=== PATIENT | female | born 1985 | race Caucasian/White ===

== ENCOUNTER → 2019-08-15 | Outpatient (CLI) | payer BC ==
--- NOTE | 2019-08-16 13:30 | RAD ---
EXAM DESCRIPTION: Knee,Left Complete CLINICAL HISTORY: 34 years, Female, KNEE PN COMPARISON: None TECHNIQUE: Four views of the left knee FINDINGS: No acute displaced fracture or dislocation is seen. The alignment of the knee is intact. No significant degenerative changes. No knee joint effusion. Mild prepatellar soft tissue calcification. No focal soft tissue swelling. IMPRESSION: 1. No acute osseous abnormality. Electronically signed by: Conor Moss DO 08/16/2019 1:28 PM CDT
== END ==
LOC: RAD 16:16
PROVIDERS: ATTEND Orthopaedic Surgery
DX: M25.562 Pain in left knee (principal)

== ENCOUNTER → 2019-08-22 | Outpatient (CLI) | payer BC ==
--- NOTE | 2019-08-22 15:11 | MRI ---
Study: MRI of the Left Knee. Indication: PAIN IN LEFT KNEE Technique: Multiplanar, multi sequence MRI of the left knee was obtained without intravenous contrast. Comparison: None. Findings: ACL, PCL, MCL, and lateral collateral ligament complex intact. Medial meniscus and lateral meniscus intact. No high-grade chondral defect medial or lateral knee compartments. Low-grade tendinosis quadriceps insertion. Patellar tendon intact. Patella normally located. No high-grade chondral defect patellofemoral compartment. Tiny effusion. Mild thickening medial patellar plica. No acute fracture. Impression: Intact menisci and ligaments. Tiny effusion. Low-grade tendinosis quadriceps tendon insertion. Mild thickening medial patellar plica. Electronically signed by: Ilan Vazquez MD 08/22/2019 3:09 PM CDT
== END ==
LOC: MRI 10:52
PROVIDERS: ATTEND Orthopaedic Surgery
DX: M25.562 Pain in left knee (principal); M25.462 Effusion, left knee; M67.52 Plica syndrome, left knee

== ENCOUNTER → 2019-12-30 | Outpatient (CLI) | payer BC | LOC: YCFC.O 16:41 | PROVIDERS: ATTEND Nurse Practitioner | DX: R30.9 Painful micturition, unspecified (principal) ==

== ENCOUNTER → 2020-02-06 | Outpatient (CLI) | payer BC | LOC: LAB.O 13:13 | PROVIDERS: ATTEND Orthopaedic Surgery | DX: Z01.818 Encounter for other preprocedural examination (principal) ==

== ENCOUNTER → 2020-02-09 | Outpatient (CLI) | payer BC ==
--- NOTE | 2020-02-09 16:20 | RAD ---
EXAM DESCRIPTION: Chest,2 Views TECHNIQUE: PA and lateral views of the chest are obtained. CLINICAL HISTORY: Female, 34 years presents with ACUTE RESPIRATORY INFECTION J06.9 COMPARISON: None FINDINGS: Heart: The heart is normal in size and configuration. Vasculature: There is no evidence of aortic aneurysm or acute findings. The pulmonary vascularity is normal. Mediastinum: No evidence of mass or adenopathy. Lungs: There is no focal consolidation in the lungs. There is a somewhat serpiginous nodular density projecting in the right supraclavicular region and overlying the right apex which is probably extrinsic to the patient. Pleural Spaces: There are no pleural effusions. There are no pneumothoraces. Osseous Structures: There is no evidence of acute fracture, osseous destruction or osteoblastic lesions. Tubes and Catheters: None Upper Abdomen: No acute findings. Chest Wall: Unremarkable. IMPRESSION: No acute cardiopulmonary abnormality. There is a somewhat serpiginous nodular density projecting in the right supraclavicular region and overlying the right apex measuring 6.6 cm longitudinally by 4.3 cm AP which appears to be extrathoracic, possibly extrinsic to the patient. However a superficial mass is not excludable. Careful clinical correlation is recommended. Electronically signed by: Kristen James MD 02/09/2020 4:18 PM CDT
== END ==
LOC: RAD 15:52
PROVIDERS: ATTEND Family Medicine
DX: J06.9 Acute upper respiratory infection, unspecified (principal); R22.2 Localized swelling, mass and lump, trunk

== ENCOUNTER 2020-03-13 05:36 | Day surgery (SDC) | payer BC ==
[2020-03-13] MEDS ORDERED: LACTATED RINGERS 1,000 ML ONE (06:11)
[2020-03-13] MEDS ORDERED: ceFAZolin SODIUM 1 GM VIAL ONE ×2 (06:12→06:40)
[2020-03-13] MEDS ORDERED: SODIUM CHL 0.9% 100ML MINI-BAG 100 ML IVPB ONE (06:12)
[2020-03-13] MEDS ORDERED: KETAMINE HCL 100 MG/ML VIAL ONE (06:29)
[2020-03-13] MEDS ORDERED: DEXMEDETOMIDINE HCL 200 MCG/2 ML INJ IV ONE (06:29)
[2020-03-13] MEDS ORDERED: fentaNYL CITRATE INJ 50 MCG/ML 2 ML AMP ONE (06:29)
[2020-03-13] MEDS ORDERED: MIDAZOLAM INJ 2 MG/2 ML VIAL ONE (06:29)
[2020-03-13] MEDS ORDERED: SCOPOLAMINE PATCH 1.5MG 1 EA TD ONE (06:33)
[2020-03-13] MEDS ORDERED: BUPIVACAINE LIPOSOME 13.3 MG/ML VIAL INJ ONE ×2 (06:40→06:54)
[2020-03-13] MEDS ORDERED: VANCOMYCIN HCL INJ 1,000 MG VIAL IVPB ONE ×2 (06:40→06:54)
[2020-03-13] MEDS ORDERED: BUPIVACAINE 0.5% 30 ML VIAL INJ ONE ×2 (06:40→06:54)
[2020-03-13] MEDS ORDERED: ceFAZolin SODIUM 1 GM VIAL IRRIG ONE (06:54)
[2020-03-13] MEDS ORDERED: HYDROcodone 5MG/APAP 325MG 1 EA TAB ONE (08:43)
[2020-03-13 09:42] VITALS: BP 93/68; TEMP 97.6; O2SAT 98
[2020-03-13] MEDS ORDERED: KETOROLAC TROMETHAMINE INJ 30 MG/ML VIAL IV ONE (10:00)
[2020-03-13] MEDS ORDERED: LIDOCAINE 1% 10 ML VIAL INJ ONE (10:00)
[2020-03-13] MEDS ORDERED: DEXAMETHASONE INJ 10 MG/ML VIAL IV ONE (10:00)
[2020-03-13] MEDS ORDERED: FAMOTIDINE 10 MG/ML ML IV ONE (10:00)
[2020-03-13] MEDS ORDERED: PROPOFOL 200 MG/20 ML VIAL IV ONE (10:00)
[2020-03-13] MEDS ORDERED: MAGNESIUM SULFATE INJ 1 GM/2 ML VIAL IVPB ONE (10:00)
[2020-03-13] MEDS ORDERED: ePHEDrine SULF 50 MG/ML IV ONE (10:00)
[2020-03-13] MEDS ORDERED: SODIUM CHLORIDE 0.9% 50 ML VIAL INJ ONE (10:00)
--- NOTE | 2020-03-14 08:16 | OP ---
DATE OF PROCEDURE: 03/13/20 PREOPERATIVE DIAGNOSIS: 1. Knee pain. POSTOPERATIVE DIAGNOSIS: 1. Grade 3 cartilage damage involving the medial femoral condyle. 2. Large medial plica. 3. Large knee effusion. PROCEDURE: 1. Debridement of cartilage. 2. Removal of plica. SURGEON: Alfonzo Salas MD. MANAGER LIFE: Fitz Romero CST, -C. ANESTHESIA: General anesthesia. COMPLICATIONS: None. FINDINGS: 1. Large portion of the anteromedial femoral condyle with fibrillation, likely secondary to traumatic reasons. 2. Large medial plica. 3. Normal medial meniscus. 4. Normal ACL, normal PCL. 5. Normal posterior recess. 6. Normal lateral compartment. 7. Normal lateral gutter. 8. Normal suprapatellar pouch. 9. Softening of the patellar cartilage. 10. Normal medial gutter. INDICATION: Shannon has a history of trauma related event which caused the acute onset of pain in the knee. She had continuing pain despite conservative measures. Because of her ongoing pain and difficulty with her daily activities secondary to the pain, she requested operative intervention. After discussing the risks, benefits and alternatives to operative therapy, the patient has given informed consent for the above procedures. PROCEDURE: The patient was brought to the Operating Room and placed in supine position. General anesthesia was induced and the patient's leg was sterilely prepped and draped. Following prepping and draping, anteromedial and anterolateral portals were established. Diagnostic arthroscopy was carried out with the above findings. Attention was then focused on the medial femoral condyle and a 3.5 mm full radius shaver was used to debride the cartilage to a stable base. It was thoroughly probed and found to be fibrillated and softened, however, there were no loose fragments. An accessory superolateral portal was established. Following that, a 3.5 mm full radius shaver was used to debride the medial plica. The knee was taken through a full range of motion and there was no more contact of the plica on the femoral condyle. The knee was thoroughly irrigated and drained. Following draining of the knee, the wounds were closed with Nylon suture. Sterile dressings were placed. The patient was awoken from anesthesia and taken to Recovery. POSTOPERATIVE PLAN: The patient will be non-weightbearing until followup with us in two days. #[id number] [facility]
== END 2020-03-13 09:25 | disposition home or self-care (01) ==
LOC: AMB 05:36
PROVIDERS: ATTEND Orthopaedic Surgery
DX: M67.52 Plica syndrome, left knee (principal); M25.562 Pain in left knee; M23.92 Unspecified internal derangement of left knee; M25.462 Effusion, left knee
CPT/HCPCS: 01400; 29877; 36415; 80048; 80307; 81025; 85025; A4216; J0690; J1100; J1885; J2250; J3010; J3370; J3475; J3490; J7050; J7120

== ENCOUNTER → 2020-06-29 | Outpatient (CLI) | payer BC | LOC: YCFC.O 16:17 | PROVIDERS: ATTEND Nurse Practitioner | DX: R31.9 Hematuria, unspecified (principal) ==

== ENCOUNTER → 2020-07-05 | Outpatient (CLI) | payer BC ==
--- NOTE | 2020-07-05 15:51 | CT ---
EXAM DESCRIPTION: Abdomen/Pelvis w/wo Contrast: Computed Tomography. CLINICAL HISTORY: MICROHEMATURIA COMPARISON: CT scan of the abdomen and pelvis without contrast August 2013. TECHNIQUE: Spiral-axial scans at 5 x 5 mm intervals through the abdomen and pelvis before and after 75 mL Optiray 320 nonionic IV contrast. No oral contrast. Coronal and sagittal 2.0 mm reconstructions. No delayed scans. No adverse reactions. Total Exam DLP 1276 mGy - cm. This exam was performed according to our departmental CT dose-optimization program which includes automated exposure control, adjustment of the mA and/or kV according to patient size and/or use of iterative reconstruction technique; to reduce radiation dose to as low as reasonably achievable (ALARA). FINDINGS: Kidneys and Ureters: 1.2 x 0.9 cm well-defined nonenhancing cyst mid lateral right kidney. No radiodense stones or hydronephrosis.. Gravel-like densities in the distal right ureter without dilation of the ureter, on axial series #2, image 82. This is adjacent to a pelvic calcification. Bilateral distal ureters appear bifid. Left ureters unremarkable. No pararenal fatty stranding or fluid. Pelvic Organs: No radiodense stones in the urinary bladder. Minimal wall thickening. Heterogeneous retroverted enlarged uterus with right fundal round enhancing object, most likely a fibroid: 1.8 x 1.7 cm on image 4/73. Bilateral ovaries are unremarkable. Minimal fluid in the cul-de-sac. Lung bases and pleura: Negative. Liver, Stomach, Spleen, Adrenal Glands: Subcapsular cyst inferior lateral right hepatic lobe stable. Inhomogeneous enhancement in the posterior subcapsular right hepatic lobe but no definite mass. Stomach and other solid organs are negative. Pancreas, Gallbladder, Ducts: Unremarkable. Mesentery: Scattered lymph nodes, otherwise negative. Aorta: Normal caliber with no para-aortic mass. Small Bowel: Unremarkable. Terminal Ileum/Cecum: Normal caliber including the appendix. Small adjacent lymph nodes but no inflammatory changes. Colon: Minimal distention distally by fecal matter with minimal redundancy in the sigmoid colon. No complications. Spine and Bony Pelvis: Negative. Abdominal Wall/Back Soft Tissues: Diastases at the umbilicus but not containing bowel. IMPRESSION: 1. Tiny gravel-like stones in the distal right ureter but no hydroureter or periureteral edema. No hydronephrosis right kidney and no radiodense stones. Left kidney and ureter are negative. No radiodense stones in the urinary bladder with borderline wall thickening. 2. Subcapsular cyst lateral right hepatic lobe. Stable since the prior study. Inhomogeneous enhancement of the subcapsular right lobe of the liver but no definite lesions and similar heterogeneous enhancement was seen on the prior study. 3. Uterus is retroverted and appears enlarged. Possible enhancing fibroid almost 2 cm in the lateral right fundus. Minimal fluid in the cul-de-sac. Consider pelvic ultrasound if there are positive clinical findings. Electronically signed by: Fitz Lu MD 07/05/2020 3:49 PM CDT
== END | disposition home or self-care (01) ==
LOC: YCFC.O 08:30
PROVIDERS: ATTEND Nurse Practitioner
DX: R31.21 Asymptomatic microscopic hematuria (principal)